=== PATIENT | female | born 1960 | race Caucasian/White ===

== ENCOUNTER → 2022-01-02 | Outpatient (CLI) | payer MEDICARE, SELFPAY ==
--- NOTE | 2022-01-02 18:15 | RAD_ITS ---
STUDY: X-RAY - LUMBAR SPINE REASON FOR EXAM: Female, 61 years old. Pain. TECHNIQUE: 3 view(s) of the lumbar spine were obtained. COMPARISON: None FINDINGS: Normal lumbar lordosis. There is no substantial scoliosis. There is a normal alignment of the vertebrae. Normal vertebral bodies. Multilevel disc space narrowing with marginal osteophytes. The soft tissue structures are unremarkable. RAD/Lumbar Spine 2 or 3 Views IMPRESSION: Multilevel degenerative changes of the lumbar spine, no fracture identified. Electronically Signed: Fish Kendrick MD at 7:05 EDT Reading Location ID and State: [id number] / , Service support ,
--- NOTE | 2022-01-02 18:18 | RAD_ITS ---
STUDY: X-RAY - CERVICAL SPINE REASON FOR EXAM: Female, 61 years old. Pain. TECHNIQUE: 3 view(s) of the cervical spine were obtained. COMPARISON: None FINDINGS: Normal anterior atlantoaxial articulation. Evaluation is limited by metallic earrings. Normal odontoid process. Normal cervical lordosis. Normal vertebral bodies and endplates. Disc space narrowing C3-C4, C4-C5 with small marginal osteophytes. Normal visualized intervertebral neuroforamina. 4 mm avulsion fracture superior to the posterior spinous process C6. Probable 5 mm avulsion fracture posterior to the spinous process of C7. The soft tissue structures are unremarkable. RAD/Cerv Spine 2 or 3 Views IMPRESSION: Mild degenerative changes of the cervical spine. Small avulsion fractures C6 and C7 spinous processes which may related to old trauma. Electronically Signed: Fish Kendrick MD at 6:41 EDT Reading Location ID and State: [id number] / , Service support ,
== END | disposition home or self-care (01) ==
LOC: RAD 18:08
PROVIDERS: PCP Physician Assistant Medical; Visit Provider Anesthesiology Pain Medicine
DX: M50.00 Cervical disc disorder with myelopathy, unspecified cervical region (principal); M51.26 Other intervertebral disc displacement, lumbar region
CPT/HCPCS: 72040; 72100

== ENCOUNTER → 2022-01-26 | Outpatient (CLI) | payer MEDICARE, SELFPAY ==
--- NOTE | 2022-01-26 11:30 | MRI_ITS ---
STUDY: MR Spine Lumbar W/O Contrast 01/26/2022 4:16 PM REASON FOR EXAM: Female, 61 years old. Back pain Lumbar radiculopathy into bilateral legs TECHNIQUE: MR Spine Lumbar W/O Contrast Standardized fat and water weighted pulse sequences were obtained. COMPARISON: xr Jan 02 2022 6:25pm FINDINGS: T12-L1: Loss of intervertebral disc height. There is endplate spondylosis of the vertebral body. Normal central canal and intervertebral neuroforamina. There is bilateral facet arthropathy. Normal lumbar lordosis. There is no substantial scoliosis. Normal conus medullaris that terminates at the L1. L1-2: Loss of intervertebral disc height. There is endplate spondylosis of the vertebral body. Normal central canal and intervertebral neuroforamina. There is bilateral facet arthropathy. L2-3: Loss of intervertebral disc height. There is endplate spondylosis of the vertebral body. Disc herniation. Moderate spinal stenosis. There is bilateral ligamentum flavum thickening. There is bilateral facet arthropathy. L3-4: Loss of intervertebral disc height. There is endplate spondylosis of the vertebral body. There is bilateral facet arthropathy. Bilateral neural foraminal stenosis. Compression of exiting nerve roots. Disc herniation. Moderate spinal stenosis. There is bilateral ligamentum flavum thickening. L4-5: Loss of intervertebral disc height. There is endplate spondylosis of the vertebral body. There is bilateral facet arthropathy. Bilateral neural foraminal stenosis. Compression of exiting nerve roots. Disc herniation. Moderate spinal stenosis. L5-S1: Loss of intervertebral disc height. There is endplate spondylosis of the vertebral body. There is bilateral facet arthropathy. Bilateral neural foraminal stenosis. Compression of exiting nerve roots. Normal visualized sacral ala. Normal visualized paraspinous soft tissue structures. MRI/Spine Lumbar (Routine) IMPRESSION: Multilevel degenerative changes, as described above. L2-3, L3-4, L4-5: Disc herniation. Moderate spinal stenosis. Electronically Signed: Paulie Shirley MD at 16:21 EDT ,
== END | disposition home or self-care (01) ==
LOC: MRI 10:32
PROVIDERS: PCP Physician Assistant Medical; Visit Provider Anesthesiology Pain Medicine
DX: M54.16 Radiculopathy, lumbar region (principal)
CPT/HCPCS: 72148

== ENCOUNTER → 2022-03-19 | Outpatient (CLI) | payer MEDICARE, SELFPAY ==
[2022-03-19 11:29] LABS: Amphetamine Urine VISTA NEGATIVE (<1000 ng/mL); Barbiturate Urine VISTA NEGATIVE (< 200 ng/mL); Benzodiazepine Urine VISTA NEGATIVE (< 200 ng/mL); Cocaine Urine VISTA NEGATIVE (< 300 ng/mL); Ecstacy Urine VISTA NEGATIVE (< 500 ng/mL); Methadone Urine VISTA NEGATIVE (< 300 ng/mL); PCP Urine VISTA NEGATIVE (< 25 ng/mL); THC Urine VISTA NEGATIVE (< 50 ng/mL); Vista UDS pH Range 6
== END | disposition home or self-care (01) ==
PROVIDERS: PCP Physician Assistant Medical; Referring Provider Anesthesiology Pain Medicine; Visit Provider Anesthesiology Pain Medicine
DX: F11.20 Opioid dependence, uncomplicated (principal)
CPT/HCPCS: 80307

== ENCOUNTER → 2022-04-16 | Outpatient (CLI) | payer MEDICARE, SELFPAY ==
[2022-04-16 11:28] LABS: Amphetamine Urine VISTA NEGATIVE (<1000 ng/mL); Barbiturate Urine VISTA NEGATIVE (< 200 ng/mL); Benzodiazepine Urine VISTA NEGATIVE (< 200 ng/mL); Cocaine Urine VISTA NEGATIVE (< 300 ng/mL); Ecstacy Urine VISTA NEGATIVE (< 500 ng/mL); Methadone Urine VISTA NEGATIVE (< 300 ng/mL); PCP Urine VISTA NEGATIVE (< 25 ng/mL); THC Urine VISTA NEGATIVE (< 50 ng/mL); Vista UDS pH Range 5
== END | disposition home or self-care (01) ==
PROVIDERS: PCP Physician Assistant Medical; Referring Provider Anesthesiology Pain Medicine; Visit Provider Anesthesiology Pain Medicine
DX: F11.20 Opioid dependence, uncomplicated (principal)
CPT/HCPCS: 36415; 80307

== ENCOUNTER → 2022-06-14 | Outpatient (CLI) | payer MEDICARE, SELFPAY ==
[2022-06-14 11:27] LABS: Amphetamine Urine VISTA NEGATIVE (<1000 ng/mL); Barbiturate Urine VISTA NEGATIVE (< 200 ng/mL); Benzodiazepine Urine VISTA NEGATIVE (< 200 ng/mL); Cocaine Urine VISTA NEGATIVE (< 300 ng/mL); Ecstacy Urine VISTA NEGATIVE (< 500 ng/mL); Methadone Urine VISTA NEGATIVE (< 300 ng/mL); PCP Urine VISTA NEGATIVE (< 25 ng/mL); THC Urine VISTA NEGATIVE (< 50 ng/mL); Vista UDS pH Range 6
== END | disposition home or self-care (01) ==
PROVIDERS: PCP Physician Assistant Medical; Referring Provider Anesthesiology Pain Medicine; Visit Provider Anesthesiology Pain Medicine
DX: F11.20 Opioid dependence, uncomplicated (principal)
CPT/HCPCS: 80307

== ENCOUNTER 2022-07-10 09:30 | Outpatient (RCR) | payer MEDICARE, SELFPAY ==
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
--- NOTE | 2022-07-10 09:59 | HP.PTDCSUM ---
It has been my pleasure to treat CRISTO VILLA referred by Dr. Adry Jj MD, with the diagnosis of BACK PAIN for a total of 6 visit(s). Discharge Date: Please see the following information for a summary of their discharge status. Subjective: PATIENT REPORTS SHE HAS LOVED THE POOL EX'S AND SHE IS A LOT BETTER. MY BACK IS NOT STIFF. LAUNDRY, DISHES AND COOKING ARE GOING BETTER. RUNNING ERRANDS TOO. PATIENT REPORTS SHE IS STILL LIMITED IN STANDING AND WALKING VERY FAR. SHE RELATES HER STANDING AND WALKING LIMITS TO L KNEE NEEDING REPLACED. PATIENT REPORTS SHE HAS MISSED SOME SHANEKA'TS DUE TO ILLNESS BUT SHE HAS SILVER SNEAKERS AND WANTS TO CONTINUE THE WATER EX'S THAT SHE LEARNED FROM US ON HER OWN NOW. B knees Pain Intensity (Out of 10): 6 Low back Pain Intensity (Out of 10): 4 R low back/hip Pain Intensity (Out of 10): 4 % Improvement: 40 Objective/Function: PATIENT WAS SEEN TODAY FOR RE-ASSESSMENT OF PROGRESS TOWARD THE SET PT GOALS AND THE NEED FOR FURTHER PHYSICAL THERAPY VS READINESS FOR DISCHARGE. ALL GOALS MET. SEE IMPROVEMENTS BELOW. UPON EXAM TODAY: SLOW ANTALGIC GAIT PATTERN INTO PT WITHOUT ANY ASSISTIVE DEVICES OR LOB. INCREASED TRUNK FLEXION. SHORT KRISTY STRIDE LENGTH AND NO TRUNK ROTATION. ARMS ARE NO LONGER EXTENDED OUT TO SIDES. STILL HIKING L HIP TO CLEAR LEFT FOOT. ABLE TO TRANSFER FROM SIT TO STAND WITHOUT UE ASSIST NOW. KRISTY LE EDEMA L > R. Sensory deficit: KRISTY LE LIGHT TOUCH APPEARS TO BE INTACT BUT L LOWER LEG AND FOOT ARE HYPERSENSATIVE TO TOUCH COMPARED TO THE RIGHT WITH TESTING. ROM deficit: TIGHT KRISTY LE HIP FLEXORS, HS'S AND GASTROC-SOLEUS COMPLEX'S L > R. L FOOT DROP. Motor deficit: RIGHT LE: HIP 4-/5, KNEE 4-/5, ANKLE 4/5. LLE: HIP 3-/5, KNEE 3-/5, ANKLE - FOOT DROP. Dural Signs: POSITIVE L LE. Lumbar mvmt loss: flex - MIN. ext - ELEAZAR. R SG - MOD. L SG - MOD. PATIENT C/O INCREASED LOW BACK WITH L SG TESTING BUT OTHERWISE PATIENT DENIES INCREASE PAIN. Core strength: POOR. Palpation: NO ACUTE TENDERNESS OF LOW BACK WITH LIGHT PALPATION. Goal 1:: DECREASE C/O LOW BACK AND KRISTY LE SX'S. Goal Progress: Goal Met Goal 2:: IMPROVE PERSONAL CARE, LIFTING, WALKING, SITTING, STANDING, SLEEP, SOCIAL LIFE, TRAVEL AND HOMEMAKING FUNCTION Goal Progress: Goal Met Goal 3:: INSTRUCT IN PROPHYLAXIS Goal Progress: Goal Met Plan: D/C TO INDEP WATER EX PROGRAM. PATIENT AGREEABLE. If there are questions or concerns regarding this patient's physical therapy, please feel free to call me at [phone]. Thank you for the referral of this patient. Sincerely, Asuncion Mora, PT, Cert MDT Balance/Gait/Functional tests - Balance/Special Test Scores Oswestry Low Back Score: 19
== END 2022-07-10 14:43 | disposition home or self-care (01) ==
LOC: PT 09:30
PROVIDERS: PCP Physician Assistant Medical; Referring Provider Anesthesiology Pain Medicine; Visit Provider Anesthesiology Pain Medicine
DX: M54.9 Dorsalgia, unspecified (principal)
CPT/HCPCS: 97113; 97162; 97164

== ENCOUNTER → 2022-11-14 | Outpatient (CLI) | payer MEDICARE, SELFPAY ==
--- NOTE | 2022-11-14 10:26 | RAD_ITS ---
INDICATION: Other cervical disc degeneration, unspecified cervical region EXAMINATION/TECHNIQUE: X-RAY - XR Spine Cervical 2 or 3 Views COMPARISON: Report of cervical spine x-rays 01/02/2022, images not available. FINDINGS: Vertebral bodies are normal in height. No definite fracture demonstrated. No subluxation. C1-2 alignment is maintained. Disc space narrowing with osteophytes from C3 through C7. Prevertebral soft tissues are unremarkable. RAD/Cerv Spine 2 or 3 Views IMPRESSION: No evidence of fracture or subluxation. Mild degenerative changes. Electronically Signed: Marichuy Burciaga MD at 18:59 EDT ,
== END | disposition home or self-care (01) ==
LOC: RAD 10:20
PROVIDERS: PCP Physician Assistant Medical; Referring Provider Anesthesiology Pain Medicine; Visit Provider Anesthesiology Pain Medicine
DX: M50.30 Other cervical disc degeneration, unspecified cervical region (principal)
CPT/HCPCS: 72040

== ENCOUNTER → 2022-12-12 | Outpatient (CLI) | payer MEDICARE, SELFPAY ==
--- NOTE | 2022-12-12 09:45 | RAD_ITS ---
HISTORY: intervertebral disc degeneration thoracic region. TECHNIQUE: XR Spine Thoracic 3 Views. COMPARISON: None. FINDINGS: VERTEBRAE: Vertebral body heights maintained. No acute fracture identified. ALIGNMENT: No significant anterior or posterior subluxation. INTERVERTEBRAL DISCS: Mild degenerative endplate changes with bridging osteophytes at multiple levels. SOFT TISSUES: Implanted loop recorder in the left lower chest. RAD/Thoracic Spine 3 Views IMPRESSION: No acute fracture or dislocation identified in the thoracic spine. Mild degenerative change. Electronically Signed: Lianet Alva MD at 9:12 EDT ,
== END | disposition home or self-care (01) ==
LOC: RAD 09:40
PROVIDERS: PCP Physician Assistant Medical; Referring Provider Internal Medicine Gastroenterology; Visit Provider Internal Medicine Gastroenterology
DX: M51.34 Other intervertebral disc degeneration, thoracic region (principal)
CPT/HCPCS: 72072

== ENCOUNTER → 2023-01-09 | Outpatient (CLI) | payer MEDICARE, SELFPAY ==
[2023-01-09 11:26] LABS: Amphetamine Urine VISTA NEGATIVE (<1000 ng/mL); Barbiturate Urine VISTA NEGATIVE (< 200 ng/mL); Benzodiazepine Urine VISTA NEGATIVE (< 200 ng/mL); Cocaine Urine VISTA NEGATIVE (< 300 ng/mL); Ecstacy Urine VISTA NEGATIVE (< 500 ng/mL); Methadone Urine VISTA NEGATIVE (< 300 ng/mL); PCP Urine VISTA NEGATIVE (< 25 ng/mL); THC Urine VISTA NEGATIVE (< 50 ng/mL); Vista UDS pH Range 6
== END | disposition home or self-care (01) ==
PROVIDERS: PCP Physician Assistant Medical; Referring Provider Anesthesiology Pain Medicine; Visit Provider Anesthesiology Pain Medicine
DX: F11.20 Opioid dependence, uncomplicated (principal)
CPT/HCPCS: 80307

== ENCOUNTER → 2023-08-05 | Outpatient (CLI) | payer MEDICARE, SELFPAY ==
[2023-08-05 11:23] LABS: Amphetamine Urine VISTA NEGATIVE (<1000 ng/mL); Barbiturate Urine VISTA NEGATIVE (< 200 ng/mL); Benzodiazepine Urine VISTA NEGATIVE (< 200 ng/mL); Cocaine Urine VISTA NEGATIVE (< 300 ng/mL); Ecstacy Urine VISTA NEGATIVE (< 500 ng/mL); Methadone Urine VISTA NEGATIVE (< 300 ng/mL); PCP Urine VISTA NEGATIVE (< 25 ng/mL); THC Urine VISTA NEGATIVE (< 50 ng/mL); Vista UDS pH Range 5
== END | disposition home or self-care (01) ==
LOC: LAB 10:08
PROVIDERS: PCP Physician Assistant Medical; Referring Provider Anesthesiology Pain Medicine; Visit Provider Anesthesiology Pain Medicine
DX: F11.20 Opioid dependence, uncomplicated (principal)
CPT/HCPCS: 80307

== ENCOUNTER → 2024-03-31 | Outpatient (CLI) | payer MEDICARE, SELFPAY ==
[2024-03-31 14:54] LABS: Amphetamine Urine VISTA NEGATIVE (<1000 ng/mL); Barbiturate Urine VISTA NEGATIVE (< 200 ng/mL); Benzodiazepine Urine VISTA NEGATIVE (< 200 ng/mL); Cocaine Urine VISTA NEGATIVE (< 300 ng/mL); Ecstacy Urine VISTA NEGATIVE (< 500 ng/mL); Methadone Urine VISTA NEGATIVE (< 300 ng/mL); PCP Urine VISTA NEGATIVE (< 25 ng/mL); THC Urine VISTA NEGATIVE (< 50 ng/mL); Vista UDS pH Range 5
== END | disposition home or self-care (01) ==
PROVIDERS: PCP Physician Assistant Medical; Referring Provider Anesthesiology Pain Medicine; Visit Provider Anesthesiology Pain Medicine
DX: F11.20 Opioid dependence, uncomplicated (principal)
CPT/HCPCS: 80307